=== PATIENT | male | born 1965 | race Caucasian/White ===

== ENCOUNTER 2017-07-14 02:36 | Emergency (ER) | payer BC ==
[~2017-07-14] VITALS: Ht 175.3 cm; Wt 95.5 kg
[~2017-07-14 02:36] MED LIST: LEVAQUIN 5500 MG/TA1 PO; LEVOTHYROXIN0.088 MG PO; PERCOCET 325 MG1 TA2 PO; PRIL40 PO
[2017-07-14 02:51] VITALS: TEMP 99.1
[2017-07-14 04:18] LABS: BASO % 0.4 % (0.0-2.0); EOS # 0.1 (0.0-0.7); EOS % 0.9 % (0-4.0); GRAN # 8.5 (1.4-6.5); HEMATOCRIT 40.5 % (42.0-52.0); HEMOGLOBIN 13.8 g/dl (13.5-18.0); LYMPH # 0.6 (1.2-3.4); LYMPH % 5.7 % (20.0-51.0); MEAN CELL VOLUME 89 fl (80.0-100.0); MEAN CORPUSCULAR HEMOGLOBIN 30 pg (27.0-31.0); MEAN CORPUSCULAR HGB CONC 34 g/dl (33.0-37.0); MEAN PLATELET VOLUME 10.1 fl (7.4-10.4); MONO # 0.9 (0.1-0.6); MONO % 8.8 % (1.7-9.3); PLATELET COUNT 174 K/mm3 (130-400); RED BLOOD COUNT 4.54 M/mm3 (4.20-5.60); REDCELL DISTRIBUTION WIDTH-CV 12.8 % (11.5-14.5)
[2017-07-14 04:28] LABS: ALBUMIN 3.9 gm/dL (3.5-5.0); BILIRUBIN,TOTAL 0.2 mg/dL (0.0-1.0); C-REACTIVE PROTEIN 2.9 mg/dL (0.0-0.9); CALCIUM 8.5 mg/dL (8.4-10.2); CREATININE, serum 1.01 mg/dL (0.66-1.25); POTASSIUM 3.9 mmol/L (3.4-5.0); TOTAL PROTEIN 6.5 gm/dL (6.4-8.2)
[2017-07-14 05:08] LABS: COLLECTION METHOD CLEAN CATCH
[2017-07-14 05:15] LABS: MUCOUS Present /lpf; PH 5 (5-8); SQUAMOUS EPITHELIAL None Seen /hpf; URINE APPEARANCE Clear; URINE BACTERIA None Seen /hpf; URINE BILIRUBIN Negative (NEGATIVE); URINE BLOOD Negative (NEGATIVE); URINE COLOR Yellow; URINE GLUCOSE Negative (NEGATIVE); URINE KETONE Negative (NEGATIVE); URINE LEUKOCYTE ESTERASE Negative (NEGATIVE); URINE NITRATE Negative (NEGATIVE); URINE PROTEIN(semi-quant) Negative (NEGATIVE); URINE RBC 0-2 /hpf; URINE UROBILINOGEN Negative (NEGATIVE)
[2017-07-14] MEDS ORDERED: TAMIFLU 75MG75 MG PO (06:13)
[2017-07-14 06:31] VITALS: BP 103/74; PULSE 84
== END 2017-07-14 06:33 | disposition home or self-care (01) ==
LOC: COL.ER 02:36
PROVIDERS: Emergency Medicine
DX: J11.1 Influenza due to unidentified influenza virus with other respiratory manifestations (principal); I10 Essential (primary) hypertension; E03.9 Hypothyroidism, unspecified; K21.9 Gastro-esophageal reflux disease without esophagitis; Z98.890 Other specified postprocedural states
CPT/HCPCS: J7030

== ENCOUNTER 2018-04-23 21:01 | Emergency (ER) | payer BC ==
[~2018-04-23] VITALS: Ht 175.3 cm; Wt 97.7 kg
[~2018-04-23 21:01] MED LIST changes: +TAMIFLU 75MG75 MG PO
[2018-04-23 21:06] VITALS: TEMP 97.8
[2018-04-23] MEDS ORDERED: COZAAR 25MG25 MG/TAB PO (21:39)
[2018-04-23 21:43] LABS: BASO % 0.2 % (0.0-2.0); EOS % 0.1 % (0-4.0); GRAN # 13.2 (1.4-6.5); GRAN % 93.3 % (42.2-75.2); HEMATOCRIT 44.9 % (42.0-52.0); HEMOGLOBIN 15.5 g/dl (13.5-18.0); LYMPH # 0.3 (1.2-3.4); LYMPH % 1.8 % (20.0-51.0); MEAN CELL VOLUME 89 fl (80.0-100.0); MEAN CORPUSCULAR HEMOGLOBIN 31 pg (27.0-31.0); MEAN CORPUSCULAR HGB CONC 35 g/dl (33.0-37.0); MONO # 0.6 (0.1-0.6); MONO % 4.3 % (1.7-9.3); PLATELET COUNT 222 K/mm3 (130-400); RED BLOOD COUNT 5.04 M/mm3 (4.20-5.60)
[2018-04-23 21:54] LABS: ALBUMIN 4.7 gm/dL (3.5-5.0); BILIRUBIN,TOTAL 0.9 mg/dL (0.0-1.0); C-REACTIVE PROTEIN 0.8 mg/dL (0.0-0.9); CALCIUM 9.5 mg/dL (8.4-10.2); CREATININE, serum 1.25 mg/dL (0.66-1.25); POTASSIUM 4.6 mmol/L (3.4-5.0); TOTAL PROTEIN 7.6 gm/dL (6.4-8.2)
[2018-04-23 23:35] VITALS: BP 109/73; PULSE 80
== END 2018-04-23 23:48 | disposition home or self-care (01) ==
LOC: COL.ER 21:01
PROVIDERS: Emergency Medicine
DX: K21.9 Gastro-esophageal reflux disease without esophagitis (principal); E03.9 Hypothyroidism, unspecified; R19.7 Diarrhea, unspecified; I10 Essential (primary) hypertension; R11.2 Nausea with vomiting, unspecified
CPT/HCPCS: J2405; J2550; J7030

== ENCOUNTER 2019-02-15 05:55 | Day surgery (SDC) | payer BC ==
[~2019-02-15] VITALS: Ht 175.3 cm; Wt 94.7 kg
[~2019-02-15 05:55] MED LIST changes: +COZAAR 25MG25 MG/TAB PO
[2019-02-15] MEDS ORDERED: MEN'S MULTIVIT1 EAC1 PO (06:09)
[2019-02-15 06:13] VITALS: BP 125/81; PULSE 60; TEMP 98
[2019-02-15 07:40] VITALS: BP 107/76; PULSE 65; TEMP 97.3
--- NOTE | 2019-02-15 07:40 | NUR ---
TO [facility] PER CART FROM ENDOSCOPY. ALERT ORIENTED X3, TALKING WITH STAFF. AMBULATED TO RECLINER AND TOLERATED WELL. RECEIVED GRAPE JUICE AND TOAST.
[2019-02-15 07:55] VITALS: BP 101/78; PULSE 56
--- NOTE | 2019-02-15 07:55 | NUR ---
ATE 100% AND TOLERATED WELL RECEIVED 2ND GLASS OF JUICE.
[2019-02-15 08:10] VITALS: BP 101/78; PULSE 63
--- NOTE | 2019-02-15 08:10 | NUR ---
TOLERATING PO WELL. DISCONTINUED IV AND INT-CATHETER INTACT PATIENT GETTING DRESSED
--- NOTE | 2019-02-15 08:37 | NUR ---
DR WALDEN INTO TALK WITH PATIENT RECEIVED DISCHARGE INSTRUCTIONS AND VERBALIZED UNDERSTANDING. WAITING ON SON TO TAKE HIM HOME, WILL BE ARRIVING AT 0900.
--- NOTE | 2019-02-15 09:25 | NUR ---
DISCHARGED PER WC BY NURSING STAFF TO PRIVATE CARE IN CARE OF SON RAJESH.
== END 2019-02-15 09:25 | disposition home or self-care (01) ==
LOC: SDCO 05:55
DX: Z12.11 Encounter for screening for malignant neoplasm of colon (principal); Z86.010 Personal history of colon polyps; Z83.71 Family history of colonic polyps; D12.7 Benign neoplasm of rectosigmoid junction; E03.9 Hypothyroidism, unspecified; D64.9 Anemia, unspecified
CPT/HCPCS: OP; J2250; J2405; J3010; J7030

== ENCOUNTER → 2024-03-08 | Day surgery (SDC) | payer BC ==
[~2024-03-08] VITALS: Ht 175.3 cm; Wt 97.2 kg
[~2024-03-08] MED LIST changes: +COZAAR 50MG50 MG/TAB PO; +HCTZ12.5TAB PO; +LR 1,000 ML IV SCH; +LUTEIN20 M1 PO; +MEN'S MULTIVIT1 EAC1 PO; +Ondansetron 4 MG/2 ML VIAL IV PRN; +SINGULAIR 110 MG/TAB PO; +SYNTHROID0.088 MG/T PO; +ZYRTEC 10MG10 MG PO
[2024-03-08 08:41] VITALS: BP 115/82; PULSE 58; TEMP 97.7
--- NOTE | 2024-03-08 09:54 | NUR ---
0954 pt arrives in [facility] per cart. [employer]. no pecimens taken. 0958 pt given snack of apple juice and chocolate ice cream. 1013 iv dc'd intact with pressure dressing applied. instructions went over with pt and family. all questions invited and answered. 1020 dr into see pt and family. 1025 pt taken in wheelchair by staff to [facility]. leaves with family
[2024-03-08 09:55] VITALS: BP 96/71; PULSE 63
[2024-03-08 10:00] VITALS: BP 94/64; PULSE 51
[2024-03-08 10:15] VITALS: BP 98/69; PULSE 55
[2024-03-08 15:51] VITALS: BP 96/71; PULSE 68
== END ==
LOC: SDCO 07:20
DX: Z12.11 Encounter for screening for malignant neoplasm of colon (principal); G47.33 Obstructive sleep apnea (adult) (pediatric); Z86.0100 Personal history of colon polyps, unspecified
CPT/HCPCS: J2704; J7120